=== PATIENT | male | born 1975 | race Caucasian/White ===

== ENCOUNTER 2020-07-28 06:25 | Emergency (ER) | payer SELFPAY ==
--- NOTE | 2020-07-28 09:06 | RADIOLOGY REPORT (SQ) ---
EXAM DESCRIPTION: FOREARM LEFT COMPLETED DATE/TIME: 07/28/2020 8:37 am REASON FOR STUDY: fall injury COMPARISON: None. NUMBER OF VIEWS: Two views. TECHNIQUE: Two radiographic images acquired of the left forearm, including elbow and wrist in at [address] one projection. LIMITATIONS: None. FINDINGS: MINERALIZATION: Normal. BONES: No acute fracture. No worrisome bone lesions. SOFT TISSUES: No obvious swelling or foreign body. OTHER: No other significant finding. IMPRESSION: NEGATIVE STUDY OF THE LEFT FOREARM. NO RADIOGRAPHIC EVIDENCE OF ACUTE INJURY. TECHNICAL DOCUMENTATION: JOB ID: [id number] 2010 [employer]- All Rights Reserved Reading location - IP/workstation name: [email or web address]
--- NOTE | 2020-07-28 09:19 | RADIOLOGY REPORT (SQ) ---
EXAM DESCRIPTION: RIBS LEFT W/PA CHEST IMAGES COMPLETED DATE/TIME: 07/28/2020 8:37 am REASON FOR STUDY: fall injury COMPARISON: Chest x-ray dated 12/24/2008. TECHNIQUE: Frontal view of the chest and additional views of the left ribs acquired. NUMBER OF VIEWS: Four view. LIMITATIONS: None. FINDINGS: FRONTAL CXR: No pneumothorax. No pleural effusion. No atelectasis or infiltrates. RIBS: Subacute or old fractures of the 6th, 7th, 10th, and 11th ribs with prominent callus and adjac ent soft tissue thickening. Fractures of the 8th and 9th ribs with minimal callus. No lytic or cherry tic bony lesions. OTHER: No other significant finding. IMPRESSION: SUBACUTE OR OLD FRACTURES OF THE 6TH, 7TH, 10TH, AND 11TH RIBS. MORE RECENT FRACTURES O F THE 8TH AND 9TH RIBS. COMMENT: SITE OF TRAUMA/COMPLAINT MARKED/STAMP COMPLETED: YES. TECHNICAL DOCUMENTATION: JOB ID: [id number] 2010 [employer]- All Rights Reserved Reading location - IP/workstation name: [email or web address]
[2020-07-28] MEDS ORDERED: ACETAMINOPHEN 325 MG TABLET PO ONE (09:34)
--- NOTE | 2020-07-28 10:36 | ER Document Report ---
ED Fall - General Chief Complaint: Fall Injury Stated Complaint: WRIST/RIB PAIN Time Seen by Provider: 07/28/20 09:15 Mode of Arrival: Ambulatory Information source: Patient TRAVEL OUTSIDE OF THE [place] IN LAST 30 DAYS: No - HPI Notes: Patient states that he fell yesterday while skateboarding. He states he now has pain to the left wrist as well as the left lower ribs. This pain in these areas are constant they are worse with movement and better with rest. The pain in the left arm does radiate up from the forearm into the elbow. It is sharp and sev ere. He states the wrist is more painful than the ribs. He denies any other injuries. No loss of consciousness. - Related data Allergies/Adverse Reactions: No Known Allergies Allergy (Verified 07/28/20 07:50) Past Medical History - General Information source: Patient - Social History Smoking Status: Current Every Day Smoker Chew tobacco use (# tins/day): No Frequency of alcohol use: None Drug Abuse: None Family History: Reviewed & Not Pertinent Patient has homicidal ideation: No Renal/ Medical History: Reports: Hx Kidney Stones - Immunizations Hx Diphtheria, Pertussis, Tetanus Vaccination: Yes Review of Systems - Review of Systems Constitutional: denies: Chills, Fever Cardiovascular: Chest pain. denies: Palpitations Respiratory: denies: Cough, Short of breath -: Yes All other systems reviewed and negative Physical Exam - Vital signs Vitals: Temp Pulse Resp BP Pulse Ox 98.2 F 76 16 157/93 H 98 07/28/20 07:24 07/28/20 07:24 07/28/20 07:24 07/28/20 07:24 07/28/20 07:24 Interpretation: Normal - General General appearance: Appears well, Alert - HEENT Head: Normocephalic, Atraumatic Eyes: Normal Pupils: PERRL - Respiratory Respiratory status: No respiratory distress Chest status: Tender Breath sounds: Normal Chest palpation: Tender. No: Subcutaneous emphysema, Sucking chest wound - Cardiovascular Rhythm: Regular Heart sounds: Normal auscultation Murmur: No - Abdominal Inspection: Normal Distension: No distension Bowel sounds: Normal Tenderness: Nontender Organomegaly: No organomegaly - Back Back: Normal, Nontender - Extremities General upper extremity: Normal temperature, Other - Left wrist is diffusely swollen. Has decreased range of motion. He is neurovascular intact distally. He does have diffuse tenderness to palpation of the left wrist. General lower extremity: Normal inspection, Nontender, Normal color, Normal ROM, Normal temperature, Normal weight bearing. No: Jey's sign - Neurological Neuro grossly intact: Yes Cognition: Normal Orientation: AAOx4 Yulisa Coma Scale Eye Opening: Spontaneous Yulisa Coma Scale Verbal: Oriented Bliss Coma Scale Motor: Obeys Commands Bliss Coma Scale Total: 15 Speech: Normal Motor strength normal: LUE, RUE, LLE, RLE Sensory: Normal - Psychological Associated symptoms: Normal affect, Normal mood - Skin Skin Temperature: Warm Skin Moisture: Dry Skin Color: Normal Course - Vital Signs Vital signs: Temp Pulse Resp BP Pulse Ox 98.2 F 76 16 157/93 H 98 07/28/20 07:24 07/28/20 07:24 07/28/20 07:24 07/28/20 07:24 07/28/20 07:24 - Diagnostic Test Radiology reviewed: Image reviewed, Reports reviewed Procedures - Immobilization Left Wrist Time completed: 10:33 Pre-Proc Neuro Vasc Exam: Normal Immobilizer type: Cock-up Performed by: RN Post-Proc Neuro Vasc Exam: Normal Alignment checked and good: Yes Discharge - Discharge Clinical Impression: Left wrist sprain Qualifiers: Encounter type: initial encounter Qualified Code(s): S63.502A - Unspecified sprain of left wrist, initial encounter Multiple rib fractures Qualifiers: Encounter type: initial encounter Fracture type: closed Laterality: left Qualified Code(s): S22.42XA - Multiple fractures of ribs, left side, initial encounter for closed fracture Condition: Stable Disposition: HOME, SELF-CARE Instructions: Wrist Sprain ([facility]), Rib Injuries and Fractures ([facility]) Additional Instructions: Call orthopedics soon as possible to arrange follow-up Prescriptions: Hydrocodone/Acetaminophen [[place] 5-325 mg Tablet] 1 tab PO Q6 PRN 3 Days #12 tablet PRN Reason: Forms: Return to Work, Elevated Blood Pressure Referrals: CORINNE AGUSTIN JR, DO [ACTIVE PROVISIONAL STAFF] - Follow up in 3-5 days
[2020-07-28 10:58] VITALS: BP 189/91
== END 2020-07-28 10:56 | disposition home or self-care (01) ==
LOC: ER 06:25
DX: S63.502A Unspecified sprain of left wrist, initial encounter (principal); S22.42XA Multiple fractures of ribs, left side, initial encounter for closed fracture; F17.200 Nicotine dependence, unspecified, uncomplicated; V00.131A Fall from skateboard, initial encounter; Y93.51 Activity, roller skating (inline) and skateboarding
CPT/HCPCS: 99284